=== PATIENT | male | born 1945 | race Caucasian/White ===

== ENCOUNTER 2021-06-01 09:01 | Inpatient (IN) | payer MEDICARE ==
[2021-06-01] VITALS (9 sets, daily range): BP systolic 131–178; BP diastolic 64–88
[~2021-06-01] VITALS: Ht 165.1 cm; Wt 66.0 kg
[~2021-06-01 09:01] MED LIST: AMLODIPINE BESYL5 MG PO; CEPHALEXIN500 M1 PO; HYDROCODONE BIT1 T11 PO; KEFLEX500 MG PO; MOTRIN800 MG PO; Motrin,Rufen800 MG PO; NORCO 10-325 T1 EACH PO; QUINAPRIL20 MG PO
[2021-06-01 09:25] LABS: BASO % 0.5 % (0.0-1.0); EOS # 0.1 10*3/uL (0.0-0.4); EOS % 1.1 % (1.0-4.0); HEMATOCRIT 41.8 % (42.0-52.0); LYMPH # 0.6 10*3/uL (1.3-4.4); LYMPH % 9.3 % (27.0-41.0); MEAN CELL VOLUME 88.4 fl (80.0-94.0); MEAN CORPUSCULAR HGB 29.8 pg (27.0-31.0); MEAN CORPUSCULAR HGB CONC 33.7 g/dl (33.0-37.0); MONO # 0.5 10*3/uL (0.1-1.0); MONO % 7.7 % (3.0-9.0); NEUT # 5.1 10*3/uL (2.3-7.9); NEUT % 80.6 % (47.0-73.0); PLATELET COUNT AUTOMATED 240 10*3/uL (130-400); RED BLOOD COUNT 4.73 10*6/uL (4.50-5.90); RED CELL DISTRI WIDTH 12.1 % (0-14.5); WHITE BLOOD COUNT 6.3 10*3/uL (4.8-10.8)
[2021-06-01 09:42] LABS: ALBUMIN 3.5 gm/dl (3.1-4.5); ALKALINE PHOSPHATASE 88 U/L (45-117); BUN 19 mg/dl (7-24); CHLORIDE 102 mmol/L (98-107); CREATININE 1.14 mg/dL (0.70-1.30); POTASSIUM 3.9 mmol/L (3.5-5.1); SGOT/AST 12 IU/L (3-35); SGPT/ALT 20 U/L (12-78); SODIUM 132 mmol/L (136-145); TOTAL PROTEIN 6.9 gm/dL (6.4-8.2)
[2021-06-01 09:45] LABS: TROPONIN I < 0.015 ng/ml (<0.045)
[2021-06-01] MEDS ORDERED: PRAVASTATIN SOD40 MG PO (12:44)
[2021-06-01] MEDS ORDERED: METOPROLOL SUCC25 M2 PO (12:45)
[2021-06-01] MEDS ORDERED: CLOPIDOGREL75 MG PO (12:45)
[2021-06-01] MEDS ORDERED: LOSARTAN POTASS25 M1 PO (12:45)
[2021-06-01] MEDS ORDERED: ASPIRIN CHILDRE81 MG PO (12:46)
[2021-06-02 06:17] LABS: BASO % 0.5 % (0.0-1.0); EOS # 0.2 10*3/uL (0.0-0.4); EOS % 2.1 % (1.0-4.0); HEMATOCRIT 41.8 % (42.0-52.0); LYMPH # 1.2 10*3/uL (1.3-4.4); LYMPH % 16.2 % (27.0-41.0); MEAN CORPUSCULAR HGB 29.3 pg (27.0-31.0); MEAN CORPUSCULAR HGB CONC 33.3 g/dl (33.0-37.0); MEAN PLATELET VOLUME 7.9 fl (9.6-12.3); MONO # 0.7 10*3/uL (0.1-1.0); MONO % 9.7 % (3.0-9.0); NEUT # 5.2 10*3/uL (2.3-7.9); NEUT % 70.5 % (47.0-73.0); PLATELET COUNT AUTOMATED 243 10*3/uL (130-400); RED BLOOD COUNT 4.75 10*6/uL (4.50-5.90); RED CELL DISTRI WIDTH 11.9 % (0-14.5); WHITE BLOOD COUNT 7.3 10*3/uL (4.8-10.8)
[2021-06-02 06:23] VITALS: BP 184/92; BP 196/91
[2021-06-02 06:52] LABS: ALBUMIN 3.6 gm/dl (3.1-4.5); CHLORIDE 99 mmol/L (98-107); POTASSIUM 4.2 mmol/L (3.5-5.1); SODIUM 132 mmol/L (136-145)
[2021-06-02 06:58] LABS: ALKALINE PHOSPHATASE 91 U/L (45-117); BUN 14 mg/dl (7-24); CHOLESTEROL 125 mg/dL (<200); CREATININE 0.91 mg/dL (0.70-1.30); FREE T4 1.07 ng/dl (0.76-1.46); LDL CHOLESTEROL 72 mg/dL (9-159); SGOT/AST 14 IU/L (3-35); SGPT/ALT 19 U/L (12-78); TOTAL PROTEIN 6.9 gm/dL (6.4-8.2); TRIGLYCERIDES 112 mg/dl (<150)
[2021-06-02 08:00] VITALS: BP 184/92
[2021-06-02 12:00] VITALS: BP 150/64
[2021-06-02 16:00] VITALS: BP 116/58
[2021-06-02 20:00] VITALS: BP 124/63
[2021-06-03] VITALS: BP 124/67
[2021-06-03 06:28] LABS: BASO # 0.1 10*3/uL (0.0-0.1); BASO % 0.6 % (0.0-1.0); EOS # 0.1 10*3/uL (0.0-0.4); EOS % 1.3 % (1.0-4.0); HEMATOCRIT 38.1 % (42.0-52.0); LYMPH # 0.7 10*3/uL (1.3-4.4); LYMPH % 8.7 % (27.0-41.0); MEAN CELL VOLUME 87.6 fl (80.0-94.0); MEAN CORPUSCULAR HGB 29.9 pg (27.0-31.0); MEAN CORPUSCULAR HGB CONC 34.1 g/dl (33.0-37.0); MEAN PLATELET VOLUME 7.9 fl (9.6-12.3); MONO # 0.8 10*3/uL (0.1-1.0); NEUT # 6.5 10*3/uL (2.3-7.9); NEUT % 78.6 % (47.0-73.0); PLATELET COUNT AUTOMATED 225 10*3/uL (130-400); RED BLOOD COUNT 4.35 10*6/uL (4.50-5.90); RED CELL DISTRI WIDTH 11.9 % (0-14.5); WHITE BLOOD COUNT 8.3 10*3/uL (4.8-10.8)
[2021-06-03 06:38] LABS: BUN 13 mg/dl (7-24); CHLORIDE 99 mmol/L (98-107); CREATININE 0.99 mg/dL (0.70-1.30); POTASSIUM 4.7 mmol/L (3.5-5.1); SODIUM 129 mmol/L (136-145)
[2021-06-03 08:00] VITALS: BP 116/68
[2021-06-03 12:00] VITALS: BP 114/60
[2021-06-03] MEDS ORDERED: IMDUR SA30 MG PO (15:34)
[2021-06-03] MEDS ORDERED: METOPROLOL SUCC50 M1 PO (15:34)
[2021-06-03 16:00] VITALS: BP 137/73
[2021-06-03 20:00] VITALS: BP 119/51
[2021-06-04] VITALS: BP 122/75
[2021-06-04 06:28] LABS: BASO % 0.6 % (0.0-1.0); EOS # 0.1 10*3/uL (0.0-0.4); EOS % 1.1 % (1.0-4.0); HEMATOCRIT 38.3 % (42.0-52.0); LYMPH # 0.8 10*3/uL (1.3-4.4); LYMPH % 10.6 % (27.0-41.0); MEAN CELL VOLUME 85.9 fl (80.0-94.0); MEAN CORPUSCULAR HGB 29.6 pg (27.0-31.0); MEAN CORPUSCULAR HGB CONC 34.5 g/dl (33.0-37.0); MEAN PLATELET VOLUME 7.9 fl (9.6-12.3); MONO # 0.9 10*3/uL (0.1-1.0); MONO % 11.7 % (3.0-9.0); NEUT # 5.5 10*3/uL (2.3-7.9); NEUT % 75.3 % (47.0-73.0); PLATELET COUNT AUTOMATED 225 10*3/uL (130-400); RED BLOOD COUNT 4.46 10*6/uL (4.50-5.90); RED CELL DISTRI WIDTH 11.8 % (0-14.5); WHITE BLOOD COUNT 7.3 10*3/uL (4.8-10.8)
[2021-06-04 06:42] LABS: BUN 11 mg/dl (7-24); CHLORIDE 97 mmol/L (98-107); CREATININE 0.92 mg/dL (0.70-1.30); SODIUM 128 mmol/L (136-145)
== END 2021-06-04 07:45 | disposition other institution (70) | DRG 303 ==
LOC: ED 09:01 → 5E 10:33 → EDHOLD 10:33 → 5E 11:05
PROVIDERS: Emergency Medicine; Social Worker Clinical; Student in an Organized Health Care Education/Training Program; ADMIT Internal Medicine; ATTEND Internal Medicine
PROC: 4A02XM4 Measurement of Cardiac Total Activity, External Approach (ICD-10-PCS; principal; 2021-06-02)
PROC: 3E073KZ Introduction of Other Diagnostic Substance into Coronary Artery, Percutaneous Approach (ICD-10-PCS; 2021-06-02)
DX: I25.700 Atherosclerosis of coronary artery bypass graft(s), unspecified, with unstable angina pectoris (principal); I16.1 Hypertensive emergency; E87.2 Acidosis; E87.1 Hypo-osmolality and hyponatremia; I10 Essential (primary) hypertension; E83.41 Hypermagnesemia; D64.9 Anemia, unspecified; R00.1 Bradycardia, unspecified; Z95.1 Presence of aortocoronary bypass graft; Z88.2 Allergy status to sulfonamides; Z79.899 Other long term (current) drug therapy; Z79.82 Long term (current) use of aspirin; Z79.02 Long term (current) use of antithrombotics/antiplatelets; Z95.0 Presence of cardiac pacemaker

== ENCOUNTER 2021-11-09 11:11 | Emergency (ER) | payer MEDICARE ==
[~2021-11-09] VITALS: Wt 65.8 kg
[~2021-11-09 11:11] MED LIST changes: +ASPIRIN CHILDRE81 MG PO; +CLOPIDOGREL75 MG PO; +IMDUR SA30 MG PO; +LOSARTAN POTASS25 M1 PO; +METOPROLOL SUCC25 M2 PO; +METOPROLOL SUCC50 M1 PO; +PRAVASTATIN SOD40 MG PO
[2021-11-09] MEDS ORDERED: CEPHALEXIN500 M1 PO (13:44)
== END 2021-11-09 13:48 | disposition home or self-care (01) ==
LOC: ED 11:11
DX: S61.227A Laceration with foreign body of left little finger without damage to nail, initial encounter (principal); Z95.1 Presence of aortocoronary bypass graft; Z79.82 Long term (current) use of aspirin; Z79.899 Other long term (current) drug therapy; Z88.2 Allergy status to sulfonamides; W55.19XA Other contact with horse, initial encounter; Y93.89 Activity, other specified; Y92.89 Other specified places as the place of occurrence of the external cause; Y99.9 Unspecified external cause status